=== PATIENT | male | born 1980 | race Caucasian/White ===

== ENCOUNTER 2025-03-08 09:09 | Emergency (ER) | payer OTHER ==
[~2025-03-08] VITALS: Ht 172.7 cm; Wt 73.2 kg
[~2025-03-08 09:09] MED LIST: CLINDAMYCIN HC300 MG PO; NORCO 5-325 TA1 EACH PO; PENICILLIN V P500 MG PO
[2025-03-08] MEDS ORDERED: LIDODERM1 EACH TOP (09:29)
[2025-03-08] MEDS ORDERED: NAPROSYN500 MG PO (09:29)
[2025-03-08 09:36] VITALS: BP 113/74
== END 2025-03-08 09:35 | disposition home or self-care (01) ==
LOC: ED 09:09
DX: S16.1XXA Strain of muscle, fascia and tendon at neck level, initial encounter (principal); V89.2XXA Person injured in unspecified motor-vehicle accident, traffic, initial encounter
CPT/HCPCS: 99283

== ENCOUNTER 2025-04-02 19:20 | Emergency (ER) | payer OTHER | END 2025-04-02 20:26 | disposition home or self-care (01) | LOC: ED 19:20 | DX: Z20.6 Contact with and (suspected) exposure to human immunodeficiency virus [HIV] (principal); F17.200 Nicotine dependence, unspecified, uncomplicated; Z79.899 Other long term (current) drug therapy ==